=== PATIENT | male | born 1950 | race Caucasian/White ===

== ENCOUNTER 2021-10-21 15:19 | Emergency (ER) | payer OTHER ==
[2021-10-21 15:44] VITALS: PULSE 56; BMI 33.0
[2021-10-21] MEDS ORDERED: ASPIRIN 81 MG CHEWABLE TABLETS PO ONE (16:31)
[2021-10-21] MEDS ORDERED: ASPIRIN 81 MG CHEWABLE TABLETS ONE (16:31)
[2021-10-21 17:18] LABS: BASO % 0.8 % (0-2.0); EOS % 0.7 % (0-4.5); HEMATOCRIT 47.9 % (35.4-49); HEMOGLOBIN 16.9 GM/dL (11.7-16.9); LYMPH % 13.2 % (8-40); MCHC 35.2 g/dl (32.0-35.9); MEAN CELL VOLUME 88.1 fl (80-96); MEAN PLT VOLUME 8.1 fl (7.5-11.1); MONO % 4.4 % (3.8-10.2); NEUT % 80.9 % (42.8-82.8); PLATELET COUNT 193 10^3/uL (134-434); RBC 5.44 M/mm3 (4.00-5.60); RDW 13.4 % (11.9-15.9); WHITE BLOOD COUNT 10.9 K/mm3 (4.0-10.0)
[2021-10-21 17:54] LABS: BLOOD UREA NITROGEN 16.7 mg/dL (7-18); CALCIUM 9.3 mg/dL (8.5-10.1)
[2021-10-21 17:55] LABS: ALBUMIN 3.8 g/dl (3.4-5.0)
[2021-10-21 17:59] LABS: BILIRUBIN,TOTAL 0.8 mg/dL (0.2-1); TOT PROT 6.5 g/dl (6.4-8.2)
[2021-10-21 19:48] VITALS: BP 165/91
[2021-10-22] MEDS ORDERED: ASPIRIN COATED 81 MG TABLET.EC PO ONE (16:19)
== END 2021-10-21 22:03 | disposition short-term general hospital (02) ==
LOC: JER 15:19
DX: R07.9 Chest pain, unspecified (principal)
CPT/HCPCS: 36415; 71045-TC-FY; 80053; 84484; 85025; 93005; 93010; 99285-25; C9803-CS; U0003; U0005